=== PATIENT | female | born 1990 | race Caucasian/White ===

== ENCOUNTER 2016-12-29 10:33 | Emergency (ER) | payer BC, MEDICAID ==
[~2016-12-29] VITALS: Ht 160 cm; Wt 76.2 kg
[~2016-12-29 10:33] MED LIST: FERROUS SULFAT325 MG PO; MOTRIN600 MG PO; PRENATAL VITAMI1 T10 PO
[2016-12-29 10:44] VITALS: BP 124/83
--- NOTE | 2016-12-29 10:57 | NUR ---
Patient transferred to bed 5 via wheelchair by tech. RN evaluating patient at bedside.
--- NOTE | 2016-12-29 11:00 | NUR ---
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 ER MD MADE AWARE OF PT STATUS.
[2016-12-29] MEDS ORDERED: KETOROLAC 60 MG/2 ML VIAL IM ONE (11:35)
[2016-12-29] MEDS ORDERED: DIAZEPAM PFS 10 MG/2 ML SYR IM ONE (11:35)
--- NOTE | 2016-12-29 11:40 | NUR ---
5MG/1ML OF VALIUM WASTED
[2016-12-29] MEDS ORDERED: MORPHINE SULFATE 4 MG/ML SYR IM ONE (12:00)
[2016-12-29 12:38] VITALS: BP 120/83
--- NOTE | 2016-12-29 12:38 | NUR ---
Patient discharged with v/s stable. Written and verbal after care instructions given and explained. Patient alert, oriented and verbalized understanding of instructions. Wheel Chair Assisted with to car. All questions addressed prior to discharge. ID band removed. Patient advised to follow up with PMD. Rx of MOTRIN, VALIUM, NORCO given. Patient educated on indication of medication including possible reaction and side effects. Opportunity to ask questions provided and answered.
== END 2016-12-29 12:38 | disposition home or self-care (01) ==
LOC: MED 10:33
DX: M54.2 Cervicalgia (principal); Z90.49 Acquired absence of other specified parts of digestive tract
CPT/HCPCS: 96372; 99284; J1885; J2270; J3360

== ENCOUNTER 2017-05-22 11:38 | Emergency (ER) | payer MEDICAID ==
[~2017-05-22] VITALS: Ht 160 cm; Wt 77.6 kg
[~2017-05-22 11:38] MED LIST changes: -FERROUS SULFAT325 MG PO; +IBUP-2213 PO; -MOTRIN600 MG PO; -PRENATAL VITAMI1 T10 PO
[2017-05-22 12:09] VITALS: BP_SYST 131; BP_SYST 153; BP_DIAS 79; BP_DIAS 94
[2017-05-22] MEDS ORDERED: NACL 0.9% 1,000 ML IV ONE (12:15)
--- NOTE | 2017-05-22 12:25 | NUR ---
PATIENT TO BED 8 AT THIS TIME.
[2017-05-22 12:51] LABS: BASOPHILS # (AUTO) 0.2 K/uL (0.00-0.22); BASOPHILS % (AUTO) 2.9 % (0.0-2.0); EOSINOPHILS % (AUTO) 0.6 % (0.0-4.0); HEMOGLOBIN 14.1 g/dL (12.0-16.0); LYMPHOCYTES # (AUTO) 2.4 K/uL (2.5-16.5); LYMPHOCYTES % (AUTO) 30.4 % (20.5-51.1); MEAN CORPUSCULAR HEMOGLOBIN 30 pg (27-31); MEAN CORPUSCULAR HGB CONC 34 g/dL (33-37); MEAN CORPUSCULAR VOLUME 90 fL (80-94); MONOCYTES # (AUTO) 0.4 K/uL (0.8-1.0); MONOCYTES % (AUTO) 4.6 % (1.7-9.3); NEUTROPHILS % (AUTO) 61.5 % (42.2-75.2); PLATELET COUNT (AUTO) 273 K/uL (140-450); RED BLOOD CELL COUNT(AUTO) 4.69 MIL/uL (4.20-5.40); RED CELL DISTRIBUTION WIDTH 12.2 % (11.6-13.7)
[2017-05-22 13:05] LABS: PROTHROMBIN TIME 9.8 secs (10.8-13.4)
[2017-05-22 13:17] LABS: ANION GAP 10.9 (8-16); CARBON DIOXIDE 31.3 mmol/L (21-32); POTASSIUM 4.2 mmol/L (3.5-5.1)
[2017-05-22 13:22] LABS: ALBUMIN 3.7 g/dL (3.4-5.0); TOTAL BILIRUBIN 0.3 mg/dL (0.0-1.0)
[2017-05-22 13:59] VITALS: BP 117/59
--- NOTE | 2017-05-22 14:00 | NUR ---
Dispo and medical decision DC home with instructions and prescriptions, understood by patient well.
== END 2017-05-22 13:59 | disposition home or self-care (01) ==
LOC: MED 11:38
DX: N93.8 Other specified abnormal uterine and vaginal bleeding (principal); R03.0 Elevated blood-pressure reading, without diagnosis of hypertension; E11.9 Type 2 diabetes mellitus without complications
CPT/HCPCS: 36415; 76856; 80053; 84702; 85025; 85610; 85730; 96360; 99285; J7030; Q0092

== ENCOUNTER 2021-08-22 09:06 | Emergency (ER) | payer MEDICAID, OTHER ==
[~2021-08-22] VITALS: Ht 162.6 cm; Wt 81.6 kg
--- NOTE | 2021-08-22 09:27 | NUR ---
PT TAKEN TO CT VIA [facility].
[2021-08-22 09:36] VITALS: BP 148/103
--- NOTE | 2021-08-22 09:42 | NUR ---
PT BROUGHT BACK FROM CT VIA [facility].
--- NOTE | 2021-08-22 09:52 | NUR ---
TO ER BED 3
[2021-08-22] MEDS ORDERED: ASPIRIN 325 MG TAB PO ONE (10:20)
--- NOTE | 2021-08-22 10:24 | NUR ---
[facility]UVIA INITIATED PER
--- NOTE | 2021-08-22 10:35 | NUR ---
PT AMBULATED TO RESTROOM FOR UA COLLECTION.
--- NOTE | 2021-08-22 10:36 | NUR ---
COLLECTED GHAZAL VÁZQUEZ, WALKED TO LAB.
[2021-08-22 10:53] LABS: BILIRUBIN,URINE NEGATIVE (NEGATIVE); BLOOD, URINE TRACE-I (NEGATIVE); COLOR,URINE YELLOW (YELLOW); LEUKOCYTE ESTERASE ,URINE NEGATIVE (NEGATIVE); NITRITE, URINE NEGATIVE (NEGATIVE); UGLUCOSE NEGATIVE (NEGATIVE)
[2021-08-22 10:54] LABS: BASOPHILS # (AUTO) 0.1 K/uL (0.00-0.22); BASOPHILS % (AUTO) 0.8 % (0.0-2.0); EOSINOPHILS # (AUTO) 0.1 K/uL (0-0.4); EOSINOPHILS % (AUTO) 1.3 % (0.0-4.0); HEMATOCRIT 40.7 % (36-48); HEMOGLOBIN 14.1 g/dL (12.0-16.0); LYMPHOCYTES # (AUTO) 2.6 K/uL (2.5-16.5); LYMPHOCYTES % (AUTO) 35.1 % (20.5-51.1); MEAN CORPUSCULAR HEMOGLOBIN 31 pg (27-31); MEAN CORPUSCULAR HGB CONC 35 g/dL (33-37); MEAN CORPUSCULAR VOLUME 90.1 fL (80-94); MONOCYTES # (AUTO) 0.4 K/uL (0.8-1.0); NEUTROPHILS # (AUTO) 4.3 K/uL (1.8-7.7); NEUTROPHILS % (AUTO) 57.8 % (42.2-75.2); PLATELET COUNT (AUTO) 283 K/uL (140-450); RED BLOOD CELL COUNT(AUTO) 4.52 MIL/uL (4.20-5.40); RED CELL DISTRIBUTION WIDTH 12.9 % (11.6-13.7); WHITE BLOOD COUNT (AUTO) 7.5 K/uL (4.8-10.8)
[2021-08-22 11:09] LABS: PROTHROMBIN TIME 9.3 secs (10.8-13.4)
[2021-08-22 11:19] LABS: APPEARANCE,URINE SLIGHTLY HAZY (CLEAR)
[2021-08-22 11:20] LABS: RBC,URINE 0-5 /HPF (0-5)
[2021-08-22 11:22] LABS: ALBUMIN 3.6 g/dL (3.4-5.0); CREATININE 0.6 mg/dL (0.6-1.3)
[2021-08-22] MEDS ORDERED: ASPIRIN 325 MG TAB ONE (11:24)
--- NOTE | 2021-08-22 11:27 | NUR ---
OBTAINED CONSENT FOR CT, PLACED IN PT CHART.
[2021-08-22 11:31] LABS: POTASSIUM 5.2 mmol/L (3.5-5.1)
[2021-08-22 11:34] LABS: ANION GAP 17.8 (8-16); CARBON DIOXIDE 23.4 mmol/L (21-32); TOTAL BILIRUBIN 0.8 mg/dL (0.0-1.0)
--- NOTE | 2021-08-22 11:47 | NUR ---
PT TAKEN TO CT VIA [facility].
--- NOTE | 2021-08-22 12:25 | NUR ---
SPOKE WITH ZAIRE FROM [facility] FOR PT UPDATES.
[2021-08-22 14:06] LABS: ALBUMIN 3.9 g/dL (3.4-5.0); ANION GAP 14.5 (8-16); CARBON DIOXIDE 27.5 mmol/L (21-32); CREATININE 0.6 mg/dL (0.6-1.3); TOTAL BILIRUBIN 0.4 mg/dL (0.0-1.0)
--- NOTE | 2021-08-22 14:22 | NUR ---
GAVE REPORT TO PAYTON CHANDRA. TRANSFER OF CARE AT THIS TIME.
[2021-08-22 14:30] VITALS: BP 117/79
--- NOTE | 2021-08-22 14:31 | NUR ---
Patient to be transferred to [place]. Is being transferred due to R/O STROKE. Receiving facility has accepting physician and available space. ER physician has signed transfer form. Patient or responsible democrat has agreed to transfer and signed form. Patient belongings inventoried and will be sent with patient. Copy of nursing notes, lab reports, EKG, Physicians Orders and X-rays to be sent with patient. Report called to PAYTON CHANDRA at receiving facility. [facility] ambulance service has been called for transfer. ETA is 17MIN.
== END 2021-08-22 14:30 | disposition short-term general hospital (02) ==
LOC: MED 09:06
DX: R29.810 Facial weakness (principal); I10 Essential (primary) hypertension; E11.9 Type 2 diabetes mellitus without complications; E78.00 Pure hypercholesterolemia, unspecified; Z20.822 Contact with and (suspected) exposure to COVID-19
CPT/HCPCS: 36415; 70450; 70496; 70498; 71045; 80053; 81001; 84484; 84702; 85025; 85610; 85730; 86886; 86900; 86901; 87086; 87426; 93005; 99285; Q0092; Q9967